=== PATIENT | male | born 1965 | race Caucasian/White ===

== ENCOUNTER → 2024-08-24 07:46 | Outpatient (REF) | payer OTHER, SELFPAY ==
[2024-08-24 08:08] VITALS: BP 142/97; BP_SYST 76
[2024-08-24 08:34] LABS: INR 0.86; PT 12.3 Sec (11.4-14.6)
[2024-08-24 10:24] VITALS: BP 139/83
== END ==
LOC: RADI 07:46
PROVIDERS: ATTENDING PHYSICIAN Internal Medicine Hematology & Oncology
DX: C88.40 Extranodal marginal zone B-cell lymphoma of mucosa-associated lymphoid tissue [MALT-lymphoma] not having achieved remission (principal)
CPT/HCPCS: 88305; 20206; 36415; 77012; 85610; 88333; 88334; 88341; 88342; 88365; 99152